=== PATIENT | female | born 1960 | race Caucasian/White ===

== ENCOUNTER 2016-05-13 08:12 | Outpatient (CLI) | payer OTHER ==
[~2016-05-13] VITALS: Ht 167.6 cm; Wt 74.8 kg
[~2016-05-13 08:12] MED LIST: BLAC200C3 PO; CYCL10TA9; CYCL10TA9 PO; CYCL7.5T27 PO; FLUT9.9S NS; HYDR-3812 PO; HYDR-3816 PO; LACT1CAP72 PO; MAGN500C15 PO; OMEP20TA7 PO; POTA99TA7 PO; PRD20T; PRD20T PO; TRAM50TA2 PO
[2016-05-13] MEDS ORDERED: BUPIVACAINE 0.25% 30 ML (SENSORCAINE) VIAL ONE (08:15)
[2016-05-13] MEDS ORDERED: TRIAMCINOLONE ACET (KENALOG-40) 40 MG/ML 1 ML VIAL ONE ×2 (08:15→08:30)
--- OUTSIDE RECORDS SUMMARY | 2016-05-13 08:16 | XMS REPORT | Continuity of Care Document ---
Author Author [facility] Organization [facility] Address Unknown Phone Unavailable Care Team Providers Care Automobile Mechanic Apprentice Name Role Phone Provider, Ordering PCP Unavailable Source Comments Some departments are not documenting in the electronic medical record. If you do not see the information that you expected, contact Release of Information in the Health Information Management department at [phone] for further assistance in locating additional records.[facility] Active Allergies and Adverse Reactions No Known Allergies Current Medications Prescription Sig. Disp. Refills Start End Date Status Date ibuprofen (ADVIL) 200 mg Take 200 mg by mouth Active tablet every 6 hours as needed for Pain. Take with food. cyclobenzaprine Take 10 mg by mouth three Active (FLEXERIL) 10 mg tablet times daily as needed for Muscle Cramps. traMADol (ULTRAM) 50 mg Take 50 mg by mouth every Active tablet 6 hours as needed for Pain. HYDROcodone/acetaminophen Take 1 Tab by mouth every Active (NORCO) 7.5/325 mg tablet 6 hours as needed for Pain predniSONE (DELTASONE) 20 Take 20 mg by mouth daily Active mg tablet with breakfast. Take 2 tabs Daily fluticasone (FLONASE) 50 Apply 1 [place] to each Active mcg/actuation nasal spray nostril as directed daily. Shake bottle gently before using. Active Problems Not on file Most Recent Encounters Date Type Specialty Providers Description 02/15/2016 Hospital Radiology Rush Avila MD Encounter 02/15/2016 Office Visit Orthopedic Surgery Rush Avila MD Degenerative disc disease, lumbar (Primary Dx); Spinal stenosis of lumbar region 02/15/2016 Ancillary Radiology Outpatient, Radiologist Diagnosis unknown Orders (Primary Dx) 02/15/2016 Ancillary Radiology Outpatient, Radiologist Diagnosis unknown Orders (Primary Dx) Social History Tobacco Use Types Packs/Day Years Used Date Current Every Day Smoker 0.5 7 Tobacco Cessation: Ready to Quit: No; Counseling Given: Yes Comments: Alcohol Use Drinks/Week oz/Week Comments No 0 Standard 0.0 drinks or equivalent Last Filed Vital Signs Vital Sign Reading Time Taken Blood Pressure 134/87 02/15/2016 12:13 PM CDT Pulse 77 02/15/2016 12:13 PM CDT Temperature 36.9 C (98.4 F) 02/15/2016 12:13 PM CDT Respiratory Rate 20 02/15/2016 12:13 PM CDT Height 1.683 m (5' 6.25") 02/15/2016 12:13 PM CDT Weight 4.689 kg (10 lb 5.4 oz) 02/15/2016 12:13 PM CDT Body Mass Index 1.66 02/15/2016 12:13 PM CDT Oxygen Saturation 99% 02/15/2016 12:13 PM CDT Plan of Care Health Maintenance Due Date Last Done Comments Hepatitis C Screening 1959 Physical (Comprehensive) 1966 Exam Pertussis Vaccine 1970 Tetanus Vaccine 01/15/1976 Cervical Cancer Screening 01/15/1980 Breast Cancer Screening 1999 Colorectal Cancer 2009 Screening Influenza Vaccine 12/31/2015 Results from Last 3 Months L SPINE COMP W BEND (02/15/2016 11:50 AM) Impressions 1.Progression of marked L4-L5 and moderate L3-L4 disc degeneration. Persistent moderate to marked L2-L3 disc degeneration. 2.Increase in grade 1 degenerative spondylolisthesis at L4-L5. 3.Intact posterior instrumentation and interbody fusion L5-S1. 4.Chronic asymmetric wedge depression left side of the L5 vertebral body. Finalized by Ruslan Zuniga M.D. on 02/15/2016 12:55 PM. Dictated by Ruslan Zuniga M.D. on 02/15/2016 12:51 PM. Narrative Lumbar spine 6 views. History: Acute bilateral low back pain with sciatica. Compared to October 09, 2012. Interval increase in grade 1 anterolisthesis of L4 on L5. Further progression of marked L4-L5 disc degeneration and moderate L3-L4 disc degeneration. Persistent moderate to marked L2-L3 disc degeneration. Interbody fusion L5-S1 with good incorporation of bone plug and intact posterior instrumentation L5- S1. Mild retrolisthesis L3 on L4. The degree of anterolisthesis at L4-L5 and retrolisthesis L3-L4 is similar in flexion and extension. Mild asymmetric wedge depression left side of the L5 vertebral body similar to September 2012. Old healed fracture deformities medial aspect of the right 11th and 12th rib. Procedure Note Interface, Radiant Results - MonFeb 15, 2016 12:58 PM CDT Lumbar spine 6 views. History: Acute bilateral low back pain with sciatica. Compared to October 09, 2012. Interval increase in grade 1 anterolisthesis of L4 on L5. Further progression of marked L4-L5 disc degeneration and moderate L3-L4 disc degeneration. Persistent moderate to marked L2-L3 disc degeneration. Interbody fusion L5-S1 with good incorporation of bone plug and intact posterior instrumentation L5- S1. Mild retrolisthesis L3 on L4. The degree of anterolisthesis at L4-L5 and retrolisthesis L3-L4 is similar in flexion and extension. Mild asymmetric wedge depression left side of the L5 vertebral body similar to September 2012. Old healed fracture deformities medial aspect of the right 11th and 12th rib. IMPRESSION 1. Progression of marked L4-L5 and moderate L3-L4 disc degeneration. Persistent moderate to marked L2-L3 disc degeneration. 2. Increase in grade 1 degenerative spondylolisthesis at L4-L5. 3. Intact posterior instrumentation and interbody fusion L5-S1. 4. Chronic asymmetric wedge depression left side of the L5 vertebral body. Finalized by Ruslan Zuniga M.D. on 02/15/2016 12:55 PM. Dictated by Rusaln Zuniga M.D. on 02/15/2016 12:51 PM. PELVIS ANTEROPOSTERIOR (02/15/2016 11:50 AM) Impressions Findings/Impression: 1.No acute or subacute changes of the pelvis. Bilateral hip joint and SI joint spaces maintained. No fractures or bone lesions of the pelvis. 2.Instrumentation L5-S1 with asymmetric wedge depression left side of the L5 vertebral body. Correlate with same day lumbar spine x-rays. Marked disc degeneration lower lumbar spine. Finalized by Ruslan Zuniga M.D. on 02/15/2016 12:51 PM. Dictated by Ruslan Zuniga M.D. on 02/15/2016 12:48 PM. Narrative Pelvis one view. History: Low back pain. Procedure Note Interface, Radiant Results - MonFeb 15, 2016 12:54 PM CDT Pelvis one view. History: Low back pain. IMPRESSION Findings/Impression: 1. No acute or subacute changes of the pelvis. Bilateral hip joint and SI joint spaces maintained. No fractures or bone lesions of the pelvis. 2. Instrumentation L5-S1 with asymmetric wedge depression left side of the L5 vertebral body. Correlate with same day lumbar spine x-rays. Marked disc degeneration lower lumbar spine. Finalized by Ruslan Zuniga M.D. on 02/15/2016 12:51 PM. Dictated by Ruslan Zuniga M.D. on 02/15/2016 12:48 PM.
[2016-05-13 08:29] VITALS: BP 150/83
[2016-05-13 09:23] VITALS: BP 164/84
--- NOTE | 2016-05-13 11:41 | Pain Medicine-Procedure ---
Procedure Pre-Op/Post-Op Diagnosis Diagnosis: Disc disorder with radiculopathy, lumbar Indications for Operation Low back and hip pain Attending Surgeon Lamonte Procedure Date of Service: May 13, 2016 PROCEDURE: Caudal Epidural Steroid Injection with catheter and left sacroiliac joint injection under Flouroscopic Guidance PROCEDURE NOTE: After obtaining written informed consent patient was taken to the procedure room. Vital signs were monitored through out the procedure. A time out was performed. The patient was placed in the prone position on fluoroscopy table. The lower back above the caudal space was prepped with chloraprep and draped in the usual sterile fashion. The skin over the sacral hiatus was identified under fluoroscopic guidance and infiltrated with 1% lidocaine for local anesthesia via 25 gauge needle. An 17-gauge epimed needle was used to access the epidural space under fluoroscopic guidance and was then advanced into the epidural space under fluoroscopic guidance in the AP view. The epimed catheter was then advanced under flourospopic guidance to the L5-S1 interspace. There was no paresthesia with catheter placement. After negative aspiration 1 cc of the contrast dye was injected through the needle with good spread of the medication in the epidural space at the appropriate levels. Again, after negative aspiration, 80 mg of kenalog with 2 cc of 0.25% marcaine and 2 mL's of preservative free normal saline was injected. There was no evidence of CSF, paresthesia or heme during the procedure. The catheter and needle were withdrawn as a unit and the tip was noted to be intact upon removal. Skin was cleaned and a sterile dressing was applied. Attention was then directed to the left sacroiliac joint which was identified under fluoroscopic guidance. The skin overlying the posterior inferior one third of the sacroiliac joint was anesthetized with 1 percent lidocaine and a 22 -gauge 3-1/2 inch needle was inserted and advanced into the joint. Following negative aspiration a total of 40 mg of Kenalog and 2 mL of 0.25 percent bupivacaine was injected. Needle was flushed with lidocaine and removed. Sterile bandage was applied. Patient tolerated the procedures well with no apparent complications. Complications None ISAMAR ERNANDEZ MD May 13, 2016 11:41 am
== END 2016-05-13 09:24 | disposition home or self-care (01) ==
LOC: CARD 08:12
PROVIDERS: ATTEND Pain Medicine Pain Medicine
DX: M51.16 Intervertebral disc disorders with radiculopathy, lumbar region (principal); M53.3 Sacrococcygeal disorders, not elsewhere classified; G89.4 Chronic pain syndrome; M96.1 Postlaminectomy syndrome, not elsewhere classified; Z79.899 Other long term (current) drug therapy
CPT/HCPCS: 27096; 62323

== ENCOUNTER → 2017-02-24 | Outpatient (CLI) | payer BC, OTHER ==
--- NOTE | 2017-02-24 15:39 | Diagnostic Imaging Report ---
CLINICAL INDICATION: Patient is having low back and upper spine pain with left leg pain. Patient has history of 5 lumbar spine surgeries from 2003 to November 30, 2016. Patient has history of breast cancer 15 years ago and melanoma cancer surgery on her left thigh area. EXAM: MRI of the lumbar spine performed without IV contrast. Sequences include sagittal T2, sagittal T1, sagittal STIR, and axial T2. COMPARISON: MRI of the lumbar spine without and with IV contrast dated 12/01/2015. FINDINGS: There are interval postop changes to the lumbar spine with extension to the previously seen L5-S1 posterior fusion hardware. There is now posterior fusion hardware extending from the L3-S1 levels. Intervertebral disc spacers are seen. There is interval L4 laminectomy seen and partial laminectomy at the L3 level. There is interval development of 2 major fluid collections one seen just posterior to the epidural region in the laminectomy area at the L4 and upper L5 levels. This fluid collection has septations within it and measures 3.1 cm x 5.1 cm x 5.4 cm (AP x Trans x CC). There is another more superficial fluid collection which is superficial to the lumbar musculature and in the deep subcutaneous fat which extends to the upper L2 vertebral body level to the lower L5 vertebral body level. This fluid collection measures 2.3 cm x 3.6 cm x 10.9 cm (AP x Trans x CC). It appears that these fluid collections may connect with a small channel seen at the L4-L5 level seen on series 5, image 25. Multilevel thoracolumbar spine degenerative disease is again seen with vertebral body spurs and facet arthropathy. T12-L1: Stable mild diffuse disc bulge. There is no significant central canal or neuroforaminal narrowing. L1-L2: There is progression of minimal posterior disc bulge. There is mild facet arthropathy with progression of mild ligamentum flavum buckling. There is interval development of minimal impression upon the thecal sac. L2-L3: Stable grade 1 retrolisthesis of L2 on L3. There is diffuse disc bulge again seen with slight increased size of the right paracentral disc protrusion/herniation component. There is stable moderate loss of intervertebral disc height. There is progression of ligamentum flavum buckling. There is mild facet arthropathy. There is moderate central canal narrowing which has progressed. There is mild to moderate right neuroforaminal narrowing which has slightly progressed and no significant left neuroforaminal narrowing. L3-L4: Interval postop changes with intervertebral fusion. There is decompression of the thecal sac and resolution of the previously seen central canal narrowing. There is at least moderate right neuroforaminal narrowing and mild left neuroforaminal narrowing which has slightly improved. L4-L5: Interval postop changes with intervertebral bony fusion. There is stable grade 1 anterolisthesis of L4 on L5. There is interval decompression of the thecal sac posteriorly with resolution of the previously seen central canal narrowing. There is at least mild bilateral neuroforaminal narrowing. L5-S1: Stable intervertebral bony fusion with no significant central spinal canal or neuroforaminal narrowing. Laminectomy changes and decompression of the thecal sac at this level is seen. IMPRESSION: 1: There are interval postop changes to the lumbar spine with extension of the previously seen posterior fusion to L3-S1 levels. There is development of 2 fluid collections in the posterior lumbar postop region and laminectomy region, described in detail above. These fluid collections may connect at the L4-L5 level. Findings are most concerning for pseudomeningocele. Infectious process is suspected to be less likely. Seroma is suspected to be less likely. 2: There are laminectomies with decompression of the previously seen L3-L4 and L4-L5 central canal narrowing. 3: There is progression of ligamentum flavum buckling at the L1-L2 and L2-L3 levels. There is now mild L1-L2 central canal narrowing and moderate L2-L3 central canal narrowing. There is also L2-L3 diffuse disc bulge again seen with slight progression of the right paracentral disc herniation component. Dictated by: Dictated on workstation # [id number]
== END ==
LOC: RAD 13:29
PROVIDERS: ATTEND Orthopaedic Surgery
DX: M51.26 Other intervertebral disc displacement, lumbar region (principal); R93.8 Abnormal findings on diagnostic imaging of other specified body structures; Z98.1 Arthrodesis status
CPT/HCPCS: 72148